=== PATIENT | female | born 1980 | race Caucasian/White ===

== ENCOUNTER → 2017-12-14 | Outpatient (CLI) | payer BC ==
[2017-12-14] MEDS: SINCALIDE 1.2 MCG in IV NORMAL SALINE 50ML 30 ML IV (10:43)
== END | disposition home or self-care (01) ==
LOC: US 07:56
DX: K82.8 Other specified diseases of gallbladder (principal); R11.0 Nausea
CPT/HCPCS: 76705; 78226; 96374; 96375; A9537; J2805

== ENCOUNTER → 2018-01-15 | Day surgery (SDC) | payer BC ==
[~2018-01-15] MED LIST: LIDOCAINE 1% PF 2 ML VIAL. ID; LIDOCAINE 2% PF Vial for OR 5 ML VIAL.; MIDAZOLAM HCL/PF 2 MG/2 ML VIAL. IV; PROPOFOL 20 ML IV; fentaNYL PF VIAL 100 MCG/2 ML VIAL IV
[2018-01-15 07:41] LABS: NEG OBC UR NEG; POS OBC UR POS; U PREG PATIENT NEGATIVE (NEG)
[2018-01-15] MEDS: IV RINGERS,LACTATED 1000ML 1,000 ML IV (07:46)
== END | disposition home or self-care (01) ==
LOC: ENDOS 07:03
DX: K29.50 Unspecified chronic gastritis without bleeding (principal); K31.9 Disease of stomach and duodenum, unspecified; K31.84 Gastroparesis; K27.9 Peptic ulcer, site unspecified, unspecified as acute or chronic, without hemorrhage or perforation; Z80.0 Family history of malignant neoplasm of digestive organs; K81.1 Chronic cholecystitis; Z79.2 Long term (current) use of antibiotics
CPT/HCPCS: 43239; 81025; 88305; J2704

== ENCOUNTER → 2018-03-26 | Outpatient (CLI) | payer BC | END | disposition home or self-care (01) | LOC: NM 10:14 | DX: R10.84 Generalized abdominal pain (principal); R11.0 Nausea | CPT/HCPCS: 78264; A9541 ==